=== PATIENT | male | born 1980 | race American Indian/Alaskan Native ===

== ENCOUNTER 2017-03-27 05:49 | Emergency (ER) | payer MEDICARE ==
[2017-03-27 06:00] VITALS: BP 192/120
== END 2017-03-27 06:15 | disposition left against medical advice (07) ==
LOC: ED 05:49
DX: R07.89 Other chest pain (principal); E11.9 Type 2 diabetes mellitus without complications; I10 Essential (primary) hypertension; Z53.21 Procedure and treatment not carried out due to patient leaving prior to being seen by health care provider
CPT/HCPCS: 93005; 93010

== ENCOUNTER 2019-08-20 11:39 | Emergency (ER) | payer MEDICARE ==
[2019-08-20] MEDS ORDERED: ASPIRIN 325 MG TAB PO ONE (12:25)
--- NOTE | 2019-08-20 13:07 | XRay Report ---
CHEST 1 VIEW INDICATION: Chest Pain. COMPARISON: Chest x-ray from 06/17/16 FINDINGS: Support devices: None. Heart: Within normal limits. There are calcified mediastinal/hilar lymph nodes consistent with sequel ae of old granulomatous disease. Lungs/Pleura: No acute air space or interstitial disease. Additional findings: None. IMPRESSION: 1. No acute findings. Signer Name: Onur Post MD Signed: 08/20/2019 1:03 PM Workstation Name: [id number]
[2019-08-20 13:43] LABS: Basophils # (Auto) 0.1 K/mm3 (0.0-0.1); Basophils % (Auto) 1.1 % (0.0-1.8); Eosinophils # (Auto) 0.1 K/mm3 (0.0-0.4); Hematocrit 32.5 % (35.5-45.6); Hemoglobin 11.1 gm/dl (11.8-15.2); Lymphocytes # (Auto) 1.7 K/mm3 (1.2-5.4); Lymphocytes % (Auto) 24.4 % (13.4-35.0); Mean Corpuscular HGB Conc 34 % (32-34); Mean Corpuscular Volume 88 fl (84-94); Monocytes # (Auto) 0.4 K/mm3 (0.0-0.8); Monocytes % (Auto) 6.4 % (0.0-7.3); Platelet Count 217 K/mm3 (140-440); Red Blood Count 3.69 M/mm3 (3.65-5.03); Red Cell Distribution Width 17.1 % (13.2-15.2)
[2019-08-20 14:14] LABS: Chol/HDL Ratio 2.89 %
--- NOTE | 2019-08-20 14:57 | Emergency Department Report ---
ED Chest Pain HPI - General Chief Complaint: Chest Pain Stated Complaint: CHEST PAIN Time Seen by Provider: 08/20/19 14:48 Source: EMS Mode of arrival: Wheelchair Limitations: Language Barrier - History of Present Illness Initial Comments: Patient is a 39 years old male with history of end-stage renal disease on hemodialysis. Patient brought to the emergency room if from a dialysis center. Patient stated that he started experiencing substernal chest pain, dull in nature with no radiation. Patient stated that pains started at the end of his dialysis session. Patient stated that he completed his dialysis. Patient denied any shortness of breath, fever or chills. No cough. MD Complaint: chest pain -: Sudden Onset: during rest Pain Location: substernal Severity: moderate Quality: aching, dull Consistency: intermittent - Related Data Allergies Allergy/AdvReac Type Severity Reaction Status Date / Time No Known Allergies Allergy Verified 09/10/14 14:40 Heart Score - HEART Score History: Moderately suspicious EKG: Non-specific Age: < 45 Risk factors: 1-2 risk factors Troponin: < normal limit HEART Score: 3 - Critical Actions Critical Actions: 0-3 pts:0.9-1.7%risk of adverse cardiac event.Candidate for discharge ED Review of Systems ROS: Stated complaint: CHEST PAIN Other details as noted in HPI Comment: All other systems reviewed and negative Constitutional: denies: chills, fever Respiratory: denies: cough, orthopnea, shortness of breath, SOB with exertion, SOB at rest, wheezing Cardiovascular: chest pain. denies: palpitations, dyspnea on exertion Gastrointestinal: denies: abdominal pain, nausea, vomiting Neurological: denies: headache, weakness ED Past Medical Hx - Past Medical History Hx Hypertension: Yes Hx Diabetes: Yes Hx Renal Disease: Yes (HD) - Surgical History Additional Surgical History: Right toe amputation (all five toes) - Social History Smoking Status: Never Smoker Substance Use Type: None ED Physical Exam - General Limitations: Language Barrier General appearance: alert, in no apparent distress - Head Head exam: Present: atraumatic, normocephalic, normal inspection - Eye Eye exam: Present: normal appearance - ENT ENT exam: Present: normal exam, normal orophraynx, mucous membranes moist - Neck Neck exam: Present: normal inspection, full ROM. Absent: tenderness, meningismus, lymphadenopathy, thyromegaly - Respiratory Respiratory exam: Present: normal lung sounds bilaterally - Cardiovascular Cardiovascular Exam: Present: regular rate, normal rhythm, normal heart sounds - GI/Abdominal GI/Abdominal exam: Present: soft, normal bowel sounds. Absent: distended, tenderness, guarding, rebound, rigid - Extremities Exam Extremities exam: Present: normal inspection, full ROM, normal capillary refill - Back Exam Back exam: Present: normal inspection, full ROM. Absent: CVA tenderness (R), CVA tenderness (L) - Neurological Exam Neurological exam: Present: alert, oriented X3, CN II-XII intact, normal gait, reflexes normal - Psychiatric Psychiatric exam: Present: normal mood - Skin Skin exam: Present: warm, intact, normal color ED Course Vital Signs 08/20/19 08/20/19 08/20/19 12:24 15:17 16:20 Temperature 98.6 F Pulse Rate 86 86 Respiratory 18 18 16 Rate Blood Pressure 166/104 Blood Pressure 117/85 177/99 [Right] O2 Sat by Pulse 99 99 99 Oximetry 08/20/19 08/20/19 17:34 18:41 Temperature Pulse Rate 95 H 156 H Respiratory 16 Rate Blood Pressure Blood Pressure 170/92 80/61 [Right] O2 Sat by Pulse 99 96 Oximetry ED Medical Decision Making - Lab Data Result diagrams: 08/20/19 13:21 08/20/19 13:21 - EKG Data -: EKG Interpreted by Me EKG shows normal: sinus rhythm Rate: normal - Radiology Data Radiology results: report reviewed - Medical Decision Making Patient is a 39 years old male with history of end-stage renal disease on he modialysis. Patient brought to the emergency room if from a dialysis center. Patient stated that he started experiencing substernal chest pain, dull in nature with no radiation. Patient stated that pains started at the end of his dialysis session. Patient stated that he completed his dialysis. Patient denied any shortness of breath, fever or chills. No cough. Patient remained asymptomatic in the ER. Labs reviewed and is unremarkable except for chronic elevation of his creatinine. Patient had 3 sets of troponin which is unremarkable. A VQ scan is showing low probability for pulmonary embolism. Patient advised to follow-up with his primary care physician in the next 2-3 days and to return to the ER if symptoms have not improved. Critical care attestation.: If time is entered above; I have spent that time in minutes in the direct care of this critically ill patient, excluding procedure time. ED Disposition Clinical Impression: Chest pain Disposition: DC-01 TO HOME OR SELFCARE Is pt being admited?: No Condition: Stable Instructions: Chest Pain (ED) Referrals: PRIMARY CARE, [Primary Care Provider] - 3-5 Days
[2019-08-20] MEDS ORDERED: ONDANSETRON 4 MG/2 ML INJ IV ONE (14:58)
--- NOTE | 2019-08-20 16:28 | Nuclear Medicine Report ---
Nuclear medicine pulmonary VQ scan INDICATION: Acute onset chest pain with dyspnea TECHNIQUE: A total of 23.4 mCi of xenon-133 was administered. A total of 5 mCi of technetium 99 MAA i njected IV per protocol FINDINGS: Normal wash-in and washout of xenon radiotracer. No mismatch perfusion defect IMPRESSION: Low probability for PTE. Signer Name: Vinay Maher MD Signed: 08/20/2019 4:24 PM Workstation Name: [id number]
[2019-08-20] MEDS ORDERED: ACETAMINOPHEN 325 MG TAB PO ONE (18:35)
[2019-08-20 21:56] VITALS: BP 135/82
== END 2019-08-20 20:10 | disposition home or self-care (01) ==
LOC: ED 11:39
DX: I12.0 Hypertensive chronic kidney disease with stage 5 chronic kidney disease or end stage renal disease (principal); N18.6 End stage renal disease; E11.22 Type 2 diabetes mellitus with diabetic chronic kidney disease; Z99.2 Dependence on renal dialysis; Z89.421 Acquired absence of other right toe(s)
CPT/HCPCS: 36415; 71045; 78582; 80048; 80061; 83690; 84484; 85025; 93005; 93010; 96374; 99285; A9540; A9558; J2405